=== PATIENT | female | born 1975 | race African-American/Black ===

== ENCOUNTER 2023-03-27 12:09 | Emergency (ER) | payer OTHER, MEDICAID ==
[~2023-03-27] VITALS: Ht 160 cm; Wt 87.0 kg
[2023-03-27 12:12] VITALS: BP 109/55; PULSE 101; RESP 16; TEMP 98.8; O2SAT 99
== END 2023-03-27 13:44 | disposition home or self-care (01) ==
LOC: ER 12:09
DX: T50.905A Adverse effect of unspecified drugs, medicaments and biological substances, initial encounter (principal); Z88.8 Allergy status to other drugs, medicaments and biological substances; Y92.9 Unspecified place or not applicable
CPT/HCPCS: 93005; 99283